=== PATIENT | female | born 1985 | race Hispanic/Latino ===

== ENCOUNTER 2019-09-10 07:22 | Emergency (ER) | payer SELFPAY ==
[2019-09-10] MEDS ORDERED: HYDROCODONE/APAP 10/325 TAB ONE (08:10)
[2019-09-10] MEDS ORDERED: IBUPROFEN 200 MG TAB PO ONE (08:10)
[2019-09-10] MEDS ORDERED: IBUPROFEN 400 MG TAB ONE (08:11)
[2019-09-10] MEDS ORDERED: LORazepam 2 MG/ML VIAL ONE (08:31)
[2019-09-10] MEDS ORDERED: LORAZEPAM 1 MG TABLET ONE (08:31)
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
[2019-09-10 09:59] VITALS: TEMP 98.4
[2019-09-10 10:00] VITALS: BP 127/89; O2SAT 100
[2019-09-10 16:33] LABS: Urine Blood TRACE (NEG); Urine Glucose NEGATIVE (NEG); Urine Protein NEGATIVE (NEG)
== END 2019-09-10 09:53 | disposition home or self-care (01) ==
LOC: ER 07:22
DX: S16.1XXA Strain of muscle, fascia and tendon at neck level, initial encounter (principal); M79.604 Pain in right leg; V49.40XA Driver injured in collision with unspecified motor vehicles in traffic accident, initial encounter
CPT/HCPCS: 70450; 71250; 72125; 72170; 81003; 81025; 99284